=== PATIENT | male | born 1965 | race Two or more races ===

== ENCOUNTER 2017-12-22 09:44 | Inpatient (IN) | payer BC ==
[~2017-12-22] VITALS: Ht 177.8 cm; Wt 107.5 kg
[2017-12-22 09:55] VITALS: Ht 177.8 cm; Wt 107.5 kg
[2017-12-22 10:44] LABS: CALCIUM 8.7 mg/dL (8.5-10.1); CARBON DIOXIDE 23.9 mmol/L (21-32); CHLORIDE SERUM 101 mmol/L (98-107); CREATININE SERUM 1.1 mg/dL (0.7-1.3); GFR1 > 60 mL/min; GLUCOSE SERUM 122 mg/dL (74-106); POTASSIUM SERUM 3.9 mmol/L (3.5-5.1); SODIUM SERUM 136 mmol/L (136-145)
[2017-12-22 10:50] LABS: BASOPHIL % 0.1 % (0-2); PLATELET COUNT 188 x10^3mcL (130-400); RED CELL DISTRIBUTION WIDTH 13.2 % (11.5-14.5)
[2017-12-22 10:55] LABS: ALBUMIN 3.5 g/dL (3.4-5.0); ALKALINE PHOSPHATASE 70 U/L (46-116); ALT/SGPT 48 U/L (16-63); AST/SGOT 22 U/L (15-37); BILIRUBIN TOTAL 0.41 mg/dL (0.20-1.00); TOTAL PROTEIN, SERUM 7.4 g/dL (6.4-8.2)
[2017-12-22 10:55] LABS: UA SPECIFIC GRAVITY 1.025 (1.005-1.035); microscopic required? YES; urine erythrocyte 3+ (NEGATIVE)
[2017-12-22 10:56] LABS: CREATINE KINASE 124 U/L (39-308)
[2017-12-22 11:04] LABS: T3 TOTAL 0.72 ng/mL
[2017-12-22 11:16] LABS: CK-MB < 0.5 ng/mL (0-3.6)
[2017-12-22 12:03] LABS: ERYTHROCYTE SED RATE 30 mm/hr (0-20)
[2017-12-22 12:32] LABS: FREE T4 0.97 ng/dL (0.76-1.46); FREE THYROXINE INDEX 2.4 ug/dL (1.4-4.5); T4(THYROXINE) 6.3 ug/dL (4.7-13.3)
[2017-12-22 12:58] VITALS: BP 102/61
[2017-12-22 13:11] VITALS: BP 102/61
[2017-12-22 13:26] LABS: CHOLESTEROL/HDL RATIO 3.3; MAGNESIUM 1.9 mg/dL (1.8-2.4); PHOSPHOROUS 3.7 mg/dL (2.5-4.9)
[2017-12-22 17:31] LABS: AMPHETAMINE QUAL UR NONE DETECTED (NEG <=1000)
[2017-12-22 18:05] VITALS: BP 91/55
[2017-12-22 21:04] VITALS: BP 91/62
[2017-12-23 05:48] VITALS: BP 124/79
[2017-12-23 07:25] LABS: BASOPHIL % 0.1 % (0-2); PLATELET COUNT 152 x10^3mcL (130-400); RED CELL DISTRIBUTION WIDTH 13.7 % (11.5-14.5)
[2017-12-23 07:47] LABS: CALCIUM 7.4 mg/dL (8.5-10.1); CARBON DIOXIDE 27.9 mmol/L (21-32); CHLORIDE SERUM 102 mmol/L (98-107); CREATININE SERUM 1.1 mg/dL (0.7-1.3); GFR1 > 60 mL/min; GLUCOSE SERUM 107 mg/dL (74-106); MAGNESIUM 1.8 mg/dL (1.8-2.4); PHOSPHOROUS 2.6 mg/dL (2.5-4.9); POTASSIUM SERUM 4.2 mmol/L (3.5-5.1); SODIUM SERUM 137 mmol/L (136-145)
[2017-12-23 09:21] VITALS: BP 124/79
[2017-12-23 12:31] VITALS: BP 92/56
[2017-12-23] MEDS ORDERED: MOT600 PO (14:40)
[2017-12-23] MEDS ORDERED: TAM75 PO (14:40)
[2017-12-23] MEDS ORDERED: ZITHROMAX Z-PA250 MG PO (15:20)
== END 2017-12-23 15:46 | disposition home or self-care (01) | DRG 189 ==
LOC: ED 09:44 → DU 11:52
PROVIDERS: Family Medicine; Specialist
DX: J96.01 Acute respiratory failure with hypoxia (principal); N17.0 Acute kidney failure with tubular necrosis; J11.1 Influenza due to unidentified influenza virus with other respiratory manifestations; R31.9 Hematuria, unspecified; E66.9 Obesity, unspecified; G47.33 Obstructive sleep apnea (adult) (pediatric); E78.5 Hyperlipidemia, unspecified; Z83.3 Family history of diabetes mellitus; Z79.899 Other long term (current) drug therapy; Z87.891 Personal history of nicotine dependence; Z88.0 Allergy status to penicillin; Z72.89 Other problems related to lifestyle
CPT/HCPCS: 83880; 84439; 87804; 94150; J1885; J2405; J3010; J7030; J7613; J7620; J7644; Q0092